=== PATIENT | female | born 1980 | race Caucasian/White ===

== ENCOUNTER 2016-10-02 08:27 | Emergency (ER) | payer MEDICAID ==
--- NOTE | 2016-10-02 08:42 | Emergency Department Record ---
History of Present Illness - General Chief Complaint: Arrythmia/Palpitations Stated Complaint: RIVERA Time Seen by Provider: 10/02/16 08:32 Source: Patient Mode of Arrival: Ambulatory Limitations: No limitations - History of Present Illness Initial Comments: 35 yo female presents not feeling well since Saturday. She states she aches all over and generally does not feel well. She developed gradual onset of, chest ache, palpitations with fluttering of her heart rate, headaches, body aches and now generally does not feel well all over. She reports she has history of fibromuscular dysplasia diagnosed 2015. She reports she has HTN from the FMD. She had a aortogram in May of 2015 but did not require any intervention (She had an abnormal renal US leading to the study - no significant findings on the aortogram). Her assessment clinician is Dr NANDINI Grace. Her cath was at [facility]. She states the FMD was diagnosed in 05/[address] Grace. She has had some of these symptoms prior but seem worse today. MD Complaint: "Heart racing", Palpitations -: Days(s) Context: Other (Gradual worsening over several days) Associated Symptoms: Anxiety, Chest pain, Cough, Shortness of breath, Other ( headache, palpitations) - Related Data Home Medications Medication Instructions Recorded Confirmed Last Taken Ibuprofen 800 mg PO QID PRN 10/02/16 10/02/16 1 Day Ago ~10/01/16 Metoprolol Tartrate 100 mg PO DAILY 10/02/16 10/02/16 1 Day Ago ~10/01/16 Paroxetine HCl [Paxil Cr] 25 mg PO DAILY 10/02/16 10/02/16 1 Day Ago ~10/01/16 Allergies Allergy/AdvReac Type Severity Reaction Status Date / Time No Known Drug Allergies Allergy Verified 10/02/16 08:47 Review of Systems Constitutional: Denies: Chills, Fever, Malaise, Weakness Eyes: Reports: Vision change (sometimes gets a brief kalidoscope changes for a few minutes over the last few months, none current. last few minutes). Denies : Eye discharge, Eye pain, Photophobia ENT: Denies: Congestion, Ear pain, Epistaxis, Throat pain Respiratory: Denies: Cough, Dyspnea, Hemoptysis, Stridor, Wheezes Cardiovascular: Reports: Arrhythmia, Chest pain, Dyspnea on exertion, Palpitations. Denies: Edema, Murmurs, Syncope Endocrine: Reports: Fatigue. Denies: Heat or cold intolerance, Polydipsia, Polyuria Gastrointestinal: Denies: Abdominal pain, Diarrhea, Hematemesis, Vomiting Genitourinary: Denies: Dysuria, Urgency Musculoskeletal: Reports: Arthralgia (joints all ache), Myalgia (aches all over) . Denies: Back pain, Joint swelling Skin: Denies: Bruising, Change in color, Rash Neurological: Reports: Headache (occasional headaches, most recent started gradual 3 days ago, not maximal at onset, comes and goes), Vertigo. Denies: Abnormal gait, Confusion, Numbness, Paresthesias, Seizure, Tingling, Tremors, Weakness Psychiatric: Reports: Anxiety Hematological/Lymphatic: Denies: Anemia, Blood Clots, Easy bleeding, Easy bruising, Swollen glands Physical Exam - General General Appearance: Alert, Oriented x3, Cooperative, No acute distress, Other ( Well appearing, appears comfortable) Limitations: No limitations - Head Head exam: Normal inspection - Eye Eye exam: Normal appearance, PERRL, EOMI, Other (Normal fundi bilateral with sharp discs. No obvious vessel abnormalities.). negative: Conjunctival injection, Periorbital swelling Pupils: negative: Irregular, Unequal - ENT ENT exam: Normal exam, Mucous membranes moist Ear exam: Normal external inspection Nasal Exam: Normal inspection Mouth exam: Normal external inspection Teeth exam: Normal inspection - Neck Neck exam: Normal inspection, Full ROM. negative: Lymphadenopathy, Tenderness - Respiratory Respiratory exam: Normal lung sounds bilaterally. negative: Accessory muscle use, Respiratory distress, Rhonchi, Stridor, Wheezes - Cardiovascular Cardiovascular Exam: Regular rate, Normal rhythm, Normal heart sounds Peripheral Pulses: 2+: Radial (R), Radial (L) - GI/Abdominal GI/Abdominal exam: Soft. negative: Tenderness - Rectal Rectal exam: Deferred - exam: Deferred - Extremities Extremities exam: Normal inspection, Full ROM, Normal capillary refill. negative: Calf tenderness, Joint swelling, Pedal edema, Tenderness - Back Back exam: Reports: Normal inspection, Full ROM. Denies: Muscle spasm, Rash noted, Tenderness - Neurological Neurological exam: Alert, CN II-XII intact, Normal gait, Oriented X3. negative : Abnormal gait, Altered, Motor sensory deficit - Psychiatric Psychiatric exam: Normal affect, Normal mood - Skin Skin exam: Dry, Intact, Normal color, Warm Course - Reevaluation(s) Reevaluation #1: EMR reviewed No previous records Requests made for prior cath report EKG 08:36 NSR, rate 67, intervals normal, axis normal, ST normal 10/02/16 08:43 Reevaluation #2: There are no acute changes on the CBC or CMP 10/02/16 09:21 Reevaluation #3: The HCT and CXR were read as negative for acute process 10/02/16 09:35 10/02/16 09:46 No acute changes in the Troponin, TSH BP recheck improved to 145/ 10/02/16 10:01 [facility] records reviewed 2.8.18 Renal US:Bilateral elevated porximal RA velocities suggests greater than 60% stenosis 3.4.16 Aortogram: Aorta diseased but patent, Mild right renal stenosis 10/02/16 10:14 The patient is resting comfortably I will contact her Autobody Technician regarding her chest pain and palpitations with elevated BP 10/02/16 10:[address] Grace. He is familiar with the patient and her history. With a normal EKG requests repeat Troponin and he will see her this week in the office for follow up consult and testing as needed. 10/02/16 10:29 We called and made the appointment with Dr Grace 10/02/16 10:30 BP 127/83 Patient feels much improved. 10/02/16 11:48 BP 124/82 The patient is resting very comfortably Returned from Carotid dopplers Reevaluation #4: The repeat troponin is negative She will be DC home to call her PCP and followup as scheduled with the assessment clinician We discussed reasons to return and the close follow up. 10/02/16 13:48 10/02/16 13:52 121/83 BP The patient is asymptomatic at DC Medical Decision Making - Lab Data Result diagrams: 10/02/16 08:48 10/02/16 08:48 Disposition Disposition: Discharge Clinical Impression: Heart palpitations Chest pain Qualifiers: Chest pain type: unspecified Qualified Code(s): R07.9 - Chest pain, unspecified Headache Qualifiers: Headache type: unspecified Headache chronicity pattern: unspecified pattern Intractability: not intractable Qualified Code(s): R51 - Headache Disposition: Home, Self-Care Condition: (1) Good Instructions: Heart Palpitations (ED), Hypertension (ED) Additional Instructions: Follow up at 9:45am on Saturday with Dr Grace at his office Forms: Patient Portal Access Time of Disposition: 13:49 Quality - Quality Measures Quality Measures: N/A - Blood Pressure Screening View Details: Yes Blood Pressure Classification: Hypertensive Reading Systolic Measurement: 170 Diastolic Measurement: 116 Screening for High Blood Pressure: < First Hypertensive BP, F/U Documented > [ [id number]] First Hypertensive Follow-up Interventions: Referral to alternative/primary care provider.
[2016-10-02 08:59] LABS: BASO % 0.8 % (0-6); EOS % 3.1 % (0-6); GRAN % 58.1 % (47-80); HEMATOCRIT 37.1 % (35.0-47.0); HEMOGLOBIN 12.8 gm/dl (11.6-16.0); LYMPH % 26.5 % (16-45); MEAN CELL VOLUME 88.3 fl (81-97); MEAN CORPUSCULAR HEMOGLOBIN 30.5 pg (27-33); MEAN CORPUSCULAR HGB CONC 34.5 g/dl (32-36); MEAN PLATELET VOLUME 9.3 fl (7.4-10.4); MONO % 11.5 % (0-9); PLATELET COUNT 270 K/uL (130-400); RED CELL DISTRIBUTION WIDTH 12.7 % (11.5-14.5); WHITE BLOOD COUNT W/O DIFF 5.9 K/uL (4.2-12.2)
[2016-10-02 09:03] LABS: INR 0.95; PARTIAL THROMBOPLASTIN TIME 28.7 SECONDS (24.5-39.1); PROTHROMBIN TIME (PATIENT) 10.3 SECONDS (9.5-12.1)
[2016-10-02 09:04] LABS: ALB/GLOB RATIO 1.3 (1.1-1.8); ALKALINE PHOSPHATASE 70 U/L (38-126); ALT/SGPT 38 U/L (9-52); ANION GAP 12.7 (7-16); AST/SGOT 37 U/L (14-36); BILIRUBIN,TOTAL 0.66 mg/dL (0.2-1.3); BLOOD UREA NITROGEN 8 mg/dL (7-17); CARBON DIOXIDE 21.3 mmol/L (22-30); CREATINE PHOSPHOKINASE 60 U/L (30-135); CREATININE 0.8 mg/dL (0.52-1.04); EST GLOMERULAR FILTRATION RATE > 60 ml/min; GLUCOSE,RANDOM 144 mg/dL (70-110); TOTAL PROTEIN 7.2 gm/dL (6.3-8.2)
[2016-10-02 09:17] LABS: CKMB 0.3 ug/L (0-6)
[2016-10-02] MEDS: ACETAMINOPHEN 1,000 MG/100 ML BTL IVPB ONE (09:17)
[2016-10-02 09:21] LABS: TROPONIN I < 0.012 ng/mL (0.00-0.034)
[2016-10-02 09:35] LABS: THYROID STIMULATING HORMONE 2.91 uIU/ml (0.465-4.68)
[2016-10-02 09:35] LABS: URINE APPEARANCE SL CLOUDY; URINE BILIRUBIN NEGATIVE (NEGATIVE); URINE BLOOD NEGATIVE (NEGATIVE); URINE COLOR YELLOW; URINE GLUCOSE (UA) NEGATIVE (NEGATIVE); URINE KETONE NEGATIVE (NEGATIVE); URINE LEUKOCYTE ESTERASE NEGATIVE (NEGATIVE); URINE NITRITE NEGATIVE (NEGATIVE); URINE PROTEIN NEGATIVE (NEGATIVE); URINE UROBILINOGEN 0.2 E.U./dL (0.20 - 1.00)
[2016-10-02 09:38] LABS: HCG,QUALITATIVE URINE NEGATIVE (NEGATIVE)
--- NOTE | 2016-10-03 09:16 | RADIOLOGY REPORT ---
EXAM: CHEST, TWO VIEWS HISTORY: CHEST HEAVINESS AND COUGH FOR THREE DAYS. TECHNIQUE: PA and lateral views of the chest were obtained. Comparison: None. FINDINGS: The heart size is normal. The lungs appear expanded with no acute infiltrate seen. No pleural effusion or pneumothorax evident. Mild spurring in the spine with a mild thoracic curve to the right. IMPRESSION: 1. MILD SPURRING IN THE SPINE WITH A MILD THORACIC CURVE TO THE RIGHT. 2. NO ACUTE INFILTRATE EVIDENT. JOB [facility]BER: [id number] [facility]
--- NOTE | 2016-10-03 09:19 | CT SCAN REPORT ---
EXAM: HEAD CT HISTORY: HEADACHE FOR FOUR DAYS. TECHNIQUE: Axial CT scan of the head was performed without IV contrast. Comparison: None. FINDINGS: No definite acute intracranial hemorrhage identified. No focal mass effect or midline shift apparent. No definite acute infarct or intracranial mass lesion is seen. The visualized paranasal sinuses and mastoids appear clear. If the patient's neurologic symptoms persist, a follow-up brain MRI may be useful for further evaluation if not contraindicated. IMPRESSION: EMERGENCY NONCONTRAST HEAD CT APPEARS NEGATIVE WITH NO DEFINITE ACUTE INTRACRANIAL HEMORRHAGE OR FOCAL MASS EFFECT IDENTIFIED. [facility]BER: [id number] [facility]
--- NOTE | 2016-10-03 09:44 | US CAROTID DOPPLER REPORT ---
EXAM: EMERGENCY BILATERAL CAROTID DOPPLER ULTRASOUND HISTORY: PAIN, DIZZINESS, HEADACHE, HISTORY OF FIBROMUSCULAR DYSPLASIA. TECHNIQUE: Emergency gibbs scale, and color Doppler with spectral analysis was used to evaluate the carotid arteries bilaterally. Comparison: None. FINDINGS: 3 Vessel Right Peak Systolic/ End Diastolic Velocities Left Peak Systolic/ End Diastolic Velocities Proximal Common Carotid Artery 125.8 cm/s/32.1 cm/s 129.8 cm/s/45.1 cm/s Mid Common Carotid Artery 114.5 cm/s/38.6 cm/s 133.7 cm/s/43.1 cm/s Distal Common Carotid Artery 81.4 cm/s/33.5 cm/s 80.2 cm/s/29.7 cm/s Proximal Internal Carotid Artery 68.5 cm/s/34.8 cm/s 87.5 cm/s/39.6 cm/s Mid Internal Carotid Artery 103.2 cm/s/45.1 cm/s 97.9 cm/s/53.9 cm/s Distal Internal Carotid Artery 96.7 cm/s/40.2 cm/s 124.4 cm/s/59.5 cm/s Carotid Bulb 58.1 cm/s/16.7 cm/s 76.3 cm/s/23.2 cm/s Proximal External Carotid Artery 121.0 cm/s/19.2 cm/s 105.7 cm/s/22.8 cm/s d d d Vertebral Artery 71.1 cm/s/24.5 cm/s 54.3 cm/s/18 cm/s Antegrade flow is seen in the right vertebral. The right ICA/CCA ratio is 0.9. Antegrade flow is seen in the left vertebral. The left ICA/CCA ratio is 0.9. As noted above, the end diastolic velocity of the mid to distal ICA on the right is borderline to mildly elevated. The peak systolic velocity of the right CCA proximally was also borderline to mildly elevated, however, the peak systolic velocity ratio is normal and when the images themselves are reviewed, relatively little plaque is apparent on the images. On the left side, there is mild elevation of the peak systolic velocities of the proximal and mid CCA and borderline elevation of the distal ICA. There is also elevation of the end diastolic velocities of the proximal and mid CCA as well as mid to distal ICA, however, similar to the right side, the peak systolic velocity ratio itself is normal and on the images there is again relatively little plaque obvious. Given the elevated ratios, however, there may be some mild to moderate stenosis particularly on the left. Follow-up CTA of the neck may be useful for further assessment. IMPRESSION: 1. SOME MILD ELEVATION OF THE PEAK SYSTOLIC AND END DIASTOLIC VELOCITIES PARTICULARLY ON THE LEFT NOTED ABOVE. 2. PEAK SYSTOLIC VELOCITY RATIOS WERE NORMAL BILATERALLY AND RELATIVELY LITTLE PLAQUE IS EVIDENT BILATERALLY. 3. FOLLOW-UP CTA OF THE NECK MAY BE USEFUL FOR FURTHER ASSESSMENT. JOB NUMBER: [id number] [facility]
== END 2016-10-02 13:58 | disposition home or self-care (01) ==
LOC: ER 08:27
DX: R07.89 Other chest pain (principal); R51 Headache; R05 Cough; R42 Dizziness and giddiness; R06.02 Shortness of breath; I77.3 Arterial fibromuscular dysplasia; I10 Essential (primary) hypertension
CPT/HCPCS: 70450; 71020; 80053; 81003; 81025; 82550; 82553; 83735; 84443; 84484; 85025; 85610; 85730; 93005; 93010; 93880; 96365; 99284